=== PATIENT | male | born 1985 | race Caucasian/White ===

== ENCOUNTER 2018-07-29 07:15 | Emergency (ER) | payer MEDICAID ==
[2018-07-29] MEDS ORDERED: PENICILLIN VK 500 MG TAB PO ONE (07:31)
[2018-07-29] MEDS ORDERED: KETOROLAC 30 MG/1 ML SDV IM ONE (07:32)
--- NOTE | 2018-07-29 07:36 | EDPHY ---
H & P Stated Complaint: Left upper gum pain for 2 days. Time Seen by Provider: 07/29/18 07:27 HPI/ROS: CHIEF COMPLAINT: Dental pain HISTORY OF PRESENT ILLNESS: The patient is a 33-year-old man with very poor dentition who states that he has been getting teeth pulled at [facility] in preparation for dentures. He has developed significant pain around tooth 10. Which is completely eroded. No intraoral fluctuance. He woke up this morning with some swelling in his upper lip and left cheek. The swelling has now resolved his he has been up and mobile. No fevers. No recent trauma. Severity: Moderate Modifying factors: None REVIEW OF SYSTEMS: Constitutional: denies: chills, fever, recent illness, recent injury EENTM: See HPI denies: blurred vision, double vision, nose congestion Respiratory: denies: cough, shortness of breath Cardiac: denies: chest pain, irregular heart rate, lightheadedness, palpitations Gastrointestinal/Abdominal: denies: abdominal pain, diarrhea, nausea, vomiting, blood streaked stools Genitourinary: denies: dysuria, frequency, hematuria, pain Musculoskeletal: denies: joint pain, muscle pain Skin: denies: lesions, rash, jaundice, bruising Neurological: denies: headache, numbness, paresthesia, tingling, dizziness, weakness Hematologic/Lymphatic: denies: blood clots, easy bleeding, easy bruising Immunologic/allergic: denies: HIV/AIDS, transplant 10 systems reviewed and negative except as noted EXAM: GENERAL: Well-appearing, well-nourished and in no acute distress. HEAD: Atraumatic, normocephalic. EYES: Pupils equal round and reactive to light, extraocular movements intact, sclera anicteric, conjunctiva are normal. ENT: Very poor dentition, multiple teeth completely eroded. Multiple teeth been pulled. Patient points to tooth 10. As the source of pain. See diagram. TMs normal, nares patent, oropharynx clear without exudates. Moist mucous membranes. NECK: Normal range of motion, supple without lymphadenopathy or JVD. LUNGS: Breath sounds clear to auscultation bilaterally and equal. No wheezes rales or rhonchi. HEART: Regular rate and rhythm without murmurs, rubs or gallops. ABDOMEN: Soft, nontender, normoactive bowel sounds. No guarding, no rebound. No masses appreciated. BACK: No CVA tenderness, no spinal tenderness, step-offs or deformities EXTREMITIES: Normal range of motion, no pitting or edema. No clubbing or cyanosis. NEUROLOGICAL: Cranial nerves II through XII grossly intact. Normal speech, normal gait. 5/5 strength, normal movement in all extremities, normal sensation , normal reflexes PSYCH: Normal mood, normal affect. SKIN: Warm, dry, normal turgor, no visible rashes or lesions. Source: Patient Exam Limitations: No limitations - Personal History Current Tetanus Diphtheria and Acellular Pertussis (TDAP): Unsure - Medical/Surgical History Hx Asthma: No Hx Chronic Respiratory Disease: No Hx Diabetes: No Hx Cardiac Disease: No Hx Renal Disease: No Hx Cirrhosis: No Hx Alcoholism: No Hx HIV/AIDS: No Hx Splenectomy or Spleen Trauma: No Other PMH: Denies. - Family History Significant Family History: No pertinent family hx - Social History Smoking Status: Current every day smoker Alcohol Use: Sober Constitutional: Initial Vital Signs Temperature (C) 36.6 C 07/29/18 07:16 Heart Rate 119 H 07/29/18 07:16 Respiratory Rate 18 07/29/18 07:16 Blood Pressure 112/79 07/29/18 07:16 O2 Sat (%) 94 07/29/18 07:16 O2 Delivery Mode Room Air Allergies/Adverse Reactions: No Known Allergies Allergy (Unverified 07/29/18 07:20) Home Medications: Medication Instructions Recorded Penicillin V Potassium [Pen Vk 500 mg PO BID 10 Days tab 07/29/18 500mg (*)] ED Images - Head Mouth: 1 - Eroded, flattened, no obvious swelling or fluctuance. Medical Decision Making ED Course/Re-evaluation: Patient has a dental infection. He has been following with [facility]. I will start him on penicillin. I will give him a IM dose of Toradol for pain control. He is agreeable to this. I will also refer him to dental 911 case he has a hard time getting into his regular dentist. Differential Diagnosis: Partial list of the Differential diagnosis considered include but were not limited to; dental caries, periapical infection, abscess and although unlikely based on the history and physical exam, I also considered cellulitis, sinusitis. I discussed these differential diagnoses and the plan with the patient as well as the usual and expected course. The patient understands that the diagnosis is provisional and that in medicine we are not always correct and that further workup is often warranted. Usual and customary warnings were given. All of the patient's questions were answered. The patient was instructed to return to the emergency department should the symptoms at all worsen or return, otherwise to followup with the physician as we discussed. - Data Points Medications Given: Discontinued Medications Ketorolac Tromethamine (Toradol) 30 mg IM EDNOW ONE Stop: 07/29/18 07:33 Last Admin: 07/29/18 07:43 Dose: 30 mg Penicillin V Potassium (Pen Vk) 500 mg PO EDNOW ONE PRN Reason: Protocol Stop: 07/29/18 07:32 Last Admin: 07/29/18 07:43 Dose: 500 mg Departure - Departure Disposition: Home, Routine, Self-Care Clinical Impression: Infected dental caries Condition: Fair Instructions: Toothache (ED) Referrals: NONE *PRIMARY CARE P,. [Primary Care Provider] - As per Instructions Dental 911 [Outside] - As per Instructions Prescriptions: Penicillin V Potassium [Pen Vk 500mg (*)] 500 mg PO BID 10 Days tab
[2018-07-29 07:51] VITALS: BP 112/80
== END 2018-07-29 08:01 | disposition home or self-care (01) ==
DX: K02.9 Dental caries, unspecified (principal); F17.200 Nicotine dependence, unspecified, uncomplicated
CPT/HCPCS: J1885